=== PATIENT | male | born 1940 | race Caucasian/White ===

== ENCOUNTER → 2016-07-08 | Outpatient (CLI) | payer MEDICARE, OTHER ==
[~2016-07-08] MED LIST: ACETAMINOPHEN; ACETAMINOPHEN325 MG PEG; ACID CONTROL150 M1 PEG; ALBUTEROL0.83 MG/ML IH; ALBUTEROL17 GM NEB; AMLODIPINE BES2.5 MG PEG; ANALGESIC BALM28 GM TP; ASA PO; ASPERCREME76.5 GM TOP; ASPIRIN; AUGMENTIN875 M1 PEG; BACTRIM DS TABL1 TA2 DOB; BAZA ANTIFUNGAL57 GM; BISACODYL10 MG/SUPP; BISACODYL10 MG/SUPP PR; CALCIUM 500 + D1 TAB PO; CALCIUM CITRATE1 T12 PEG; CAPTOPRIL25 MG PO; CARDURA2 MG PEG; CARDURA4 M1 PEG; CARDURA8 MG PEG; CEFTIN500 MG; CENTRUM PEG; CITRACAL + D CA1 TA1 PEG; CITRACAL D + H1 EACH PO; CLONIDINE; COLACE50 MG/5 ML PEG; DIASTAT ACUDIAL1 KIT; DITROPAN5 MG PEG; DOXAZOSIN MESYLA4 MG PO; ENEMA133 M1 RC; FERROUS SU220 MG/52 PO; FLOMAX0.4 M1 PO; GERI-TUSSI100 MG/5 M PO; GLUCOPHAGE500 M1 PEG; GLUCOPHAGE500 MG PEG; GOLYTELY4000 ML PEG; HYDROCODON-ACE1 EAC7 PO; LACTULOSE10 G/15 M2; LACTULOSE10 G/15 ML; LACTULOSE10 G/15 ML PO; LIDOCAINE HCL5 ML UR; LOVASTATIN20 M1 PEG; METFORMIN HCL500 M1 GT; METFORMIN HCL500 M1 PO; METHENAMINE HIPP1 GM PEG; MEVACOR; MEVACOR20 M1 PEG; MEVACOR40 MG PO; MIACALCIN4 ML; MIRALAX17 GM PEG; MONTELUKAST SOD10 MG PEG; MULTI-VITAMIN1 TAB; MYLICON40 MG/0.1 PEG; MYLICON40 MG/0.6; NEOSPORIN28 GM TOP; NEXIUM20 MG PO; NEXIUM40 MG/PACK; NORVASC PO; NORVASC10 MG PO; OMEGA 3 FISH OI1 CAP PEG; OMEGA 3 FISH OI1 CAP PO; OMEGA 3 FISH1 CAP.EC PO; OYSTER CALCIUM500 MG; PHENERGAN SUPP25 M1 PR; PREVACID; RISAMINE OINTM113 GM TOP; RISAMINE OINTM113 GM TP; SALINE NASAL GEL TOP; SALINE NASAL14.1 GM TOP; SALINE NASAL14.1 GM TP; SERTRALINE HCL25 M1 PEG; SERTRALINE HCL25 M2 PEG; SINGULAIR; SINGULAIR PO; THERAGRAN; THERAGRAN1 TAB PEG; THERAGRAN1 TAB PO; TRAMADOL HCL50 M1 PEG; TRICOR; TYLENOL325 M1 PO; VITAMIN D1000 UNI1 PEG; VITAMIN D1000 UNI1 PO; VITAMIN D1000 UNI2 PEG; VITAMIN D400 UNI1 PEG; ZOFRANODT PO; ZOLOFT PO; ZOLOFT50 MG; ZOLOFT50 MG PEG; ZOSYN IV; [UNRECOGNIZED DRUG - CODE] PO; [UNRECOGNIZED DRUG - OTHER]
== END | disposition home or self-care (01) ==
LOC: CSSDAY 07-06 12:45
DX: M81.0 Age-related osteoporosis without current pathological fracture (principal)
CPT/HCPCS: 96372; J0897

== ENCOUNTER 2016-07-28 12:56 | Emergency (ER) | payer MEDICARE, OTHER ==
--- NOTE | ~2016-07-28 | CT114 ---
[facility] A Service of [facility] RADIOLOGY TEXT RESULTS PATIENT: WILLEM MONTEZ LOCATION: [facility] : 42 UNIT #: [id number] AGE: [address]: Bin Lopez MD SEX: M ORDER DR: [id number] [facility] [address] [place], [place] [address] [id number] MR#: [id number] Acc #: [id number] NAME: WILLEM MONTEZ. : 1940 SEX: M STUDY DATE/TIME: 07/28/2016 15:07 UNIT: [facility] ROOM: STUDY DESCRIPTION: CT Soft Tissue Neck W Cont Attending Physician: Bin Lopez M.D. Ordering Physician: [id number] Pauline Lopez Primary Care Physician: Donta Padilla Sr., M.D. MEDICAL IMAGING REPORT This report is preliminary unless electronic signature is present EXAM soft tissue neck CT with contrast, 07/28/2016 PROCEDURE Axial contrast-enhanced soft tissue neck CT with multiplanar reformats. This CT exam was performed with one or more of the following radiation dose reduction techniques: automatic exposure control, adjustment of mA and/or kV according to patient size, and iterative reconstruction. COMPARISON Cervical spine CT dated 02/18/2015. CLINICAL HISTORY Right side neck swelling and erythema for 1 day. FINDINGS There is a right submandibular soft tissue swelling and inflammatory change which appears centered in the right submandibular salivary gland. The Lindsey's duct actually appears dilated up to the level of the papilla but no stone is seen either within the gland or along the course of the duct. There is marked surrounding soft tissue swelling and subcutaneous superficial swelling, but the jugular vein appears normally patent. There is plaque at the carotid bifurcation but no judgment can be made regarding possible stenosis of the internal carotid by NASCET criteria. There is marked spinal degenerative change, but no bone erosion or destruction. There is no periodontal erosion or lucency and the patient is edentulous. IMPRESSION [facility] A Service [facility] RADIOLOGY TEXT RESULTS PATIENT: WILLEM MONTEZ LOCATION: [facility] : 42 UNIT #: [id number] AGE: [address]: Bin Lopez MD SEX: M ORDER DR: 1. Marked right floor of mouth and submandibular soft tissue swelling centered around the submandibular salivary gland with what appears to be inflammation along the course of the right Lindsey's duct in the sublingual space up to the level of the papilla though no stone is seen either in the gland or along the course of the duct. Correlate with physical exam for potential soft tissue causes of Lindsey's duct obstruction. Findings appear represent secondary sialoadenitis, and the parotid glands and left submandibular gland are normal. 2. Study is somewhat motion degraded. There is no definite acute bony abnormality although there is marked cervical spinal degenerative change. 3. Patient is edentulous and there is no active-appearing dental periodontal disease identified. 4. No drainable abscess. 5. Plaque at the carotid bifurcations but no assessment can be made about the presence or absence of stenosis on either side by NASCET criteria. 6. No other acute abnormality is seen. Dictated by... Blair Nguyen M.D. THIS IS AN ELECTRONICALLY VERIFIED REPORT Blair Nguyen M.D. at 07/31/2016 2:20 PM TAWNY/stefanie TD: 07/28/2016 20:49 JOB #: [id number] MEDICAL IMAGING REPORT Page 1 of 1 COPY
[2016-07-28 14:21] LABS: BASOPHIL% 0.1 % (0-2.5); HEMATOCRIT 34.9 % (38.0-50.0); HEMOGLOBIN 11.3 gm/dL (13.0-16.0); LYMPHOCYTE# 0.9 X10e3 (1.0-3.5); MEAN CELL VOLUME 89.3 FL (83-96); MEAN CORPUSCULAR HEMOGLOBIN 28.8 PG (28-34); MEAN CORPUSCULAR HGB CONC 32.3 g/dL (30-36); MEAN PLATELET VOLUME 10.9 FL (6.5-11.5); MONOCYTE% 6.5 % (3.0-12.0); NEUTROPHIL# 13.1 X10e3 (1.5-7.1); NEUTROPHIL% 87.4 % (40-75); PLATELET COUNT 173 X10e3 (140-420); RED BLOOD COUNT 3.91 X10e (3.90-5.60); RED CELL DISTRIBUTION WIDTH 13.9 % (11.0-15.5); WHITE BLOOD COUNT 14.9 X10e3 (4.0-10.5)
[2016-07-28 14:22] LABS: DIFF IND NO
[2016-07-28 14:40] LABS: BUN/CREATININE RATIO 41.42; CALCIUM SERUM 8.8 mg/dL (8.4-10.2); CREATININE SERUM 0.7 mg/dL (0.6-1.4); GLOM FILT RATE Estimated 92.4 mL/min (>60); POTASSIUM 3.8 mmol/L (3.5-5.1)
== END 2016-07-28 17:18 | disposition hospice, home (50) ==
LOC: CED 12:56
PROVIDERS: Emergency Medicine
DX: R22.1 Localized swelling, mass and lump, neck (principal); I10 Essential (primary) hypertension; J44.9 Chronic obstructive pulmonary disease, unspecified; E11.9 Type 2 diabetes mellitus without complications
CPT/HCPCS: 36415; 70491; 80048; 83605; 85025; 87040; 96365; 96375; 99285; J2060; Q9967

== ENCOUNTER → 2016-08-19 | Outpatient (CLI) | payer MEDICARE, OTHER | END | disposition home or self-care (01) | LOC: CRAD 09:45 | DX: R13.10 Dysphagia, unspecified (principal) | CPT/HCPCS: 74230; 92611; G8996-GN; G8997-GN; G8998-GN ==